=== PATIENT | female | born 1990 | race Asian ===

== ENCOUNTER 2021-08-02 09:21 | Emergency (ER) | payer OTHER ==
[2021-08-02 11:26] LABS: BILIRUBIN NEGATIVE (NEGATIVE); BLOOD TRACE-INTACT Ery/uL (NEGATIVE); CLARITY CLEAR (CLEAR); COLOR YELLOW (YELLOW); GLUCOSE (U) NORMAL (NORMAL); LEUKOCYTES NEGATIVE Leu/uL (NEGATIVE); NITRITE NEGATIVE (NEGATIVE); PROTEIN NEGATIVE (NEGATIVE); SPECIFIC GRAVITY <=1.005 (1.001-1.030); UROBILINOGEN 0.2 mg/dL (0.2-1.0)
[2021-08-02 11:47] LABS: BACTERIA 1+; SQUAMOUS EPITHELIAL CELLS RARE
[2021-08-02 12:32] LABS: BASOPHIL 0.7 % (0-2); EOSINOPHIL 1.2 % (0-5); HCT 44.9 % (37.0-47.0); HGB 14.2 g/dl (12.5-16.0); LYMPHOCYTE 26.4 % (15-48); MCH 28.2 pg (25.0-31.0); MCHC 31.6 g/dL (32.0-36.0); MCV 89.3 fL (78.0-100.0); MONOCYTE 13.8 % (0-12); MPV 10.5 fL (6.0-9.5); NEUTROPHIL 57.7 % (41-80); NRBC 0; PLT 305 K/uL (150-400); RBC 5.03 M/uL (4.20-5.40); RDW 13.3 % (11.5-14.0); WBC 5.8 K/uL (4.0-10.5)
[2021-08-02 12:49] LABS: BUN/CREAT RATIO (CALC) 6.8 RATIO; CREATININE 0.73 mg/dL (0.51-0.95); POTASSIUM 4.6 mmol/L (3.5-5.1)
== END 2021-08-02 13:15 | disposition home or self-care (01) ==
LOC: FER 09:21
PROVIDERS: Emergency Medicine
DX: U07.1 COVID-19 (principal); R31.9 Hematuria, unspecified; Z88.1 Allergy status to other antibiotic agents
CPT/HCPCS: 36415; 80048; 81001; 85025; 99283; J7030